=== PATIENT | male | born 1960 | race Caucasian/White ===

== ENCOUNTER → 2018-02-25 09:10 | Outpatient (CLI) | payer OTHER, SELFPAY ==
[2018-02-23 16:03] VITALS: BMI 29.8
[2018-02-25 11:22] LABS: Anion Gap 7 (5-15); BUN 15 mg/dL (7-18); BUN/Creat Ratio 18.4 RATIO (10-20); Calcium,Total 8.7 mg/dL (8.5-10.1); Chloride 106 mmol/L (98-107); Cholesterol 164 mg/dL (200); Creatinine, Serum 0.82 mg/dL (0.70-1.30); EST Glomerular Filtration Rate 103 mL/min (>60); Est Glom Filt Rate - Afr Amer 125 mL/min (>60); Glucose 101 mg/dL (74-106); High Density Lipoprotein 39 mg/dL; Sodium Level 140 mmol/L (136-145); Triglycerides 133 mg/dL; Very Low Density Lipoprotein 27 mg/dL (5-40)
== END ==
PROVIDERS: Family Provider Family Medicine; PCP Family Medicine; Referring Provider Family Medicine; Visit Provider Family Medicine
DX: I10 Essential (primary) hypertension (principal)
CPT/HCPCS: 36415; 80048; 80061

== ENCOUNTER 2018-04-17 08:22 | Day surgery (SDC) | payer OTHER, SELFPAY ==
[2018-02-23 16:03] VITALS: BMI 29.8
[2018-04-17 08:37] VITALS: BP 118/82; PULSE 89; RESP 16; TEMP 36.2; O2SAT 100; BMI 28.0
--- NOTE | 2018-04-17 09:30 | COLBX_PTH ---
PATIENT: KRISTAL COLVIN LOC: EN U#:[id number] AGE/SX: 57/M ROOM: RE04/17/[address]: Dr. Kaelyn Peter MD : 1960 BED: DIS: 04/17/2018 SPEC #: [id number] RECD: 04/17/18 10:56 STATUS: EULALIO REBerenice #: [id number] COLLINS: 04/17/18 09:[address]: Kaelyn Peter DEPT: SURGICAL PATHOLOGY RECD BY: Christiano Moe ENTERED: 04/17/18 14:23 SP TYPE: COLON BX OTHR DR: Dr. Jaspal Melissa, Tissues: A - Ascending colon B - Sigmoid colon biopsy Procedures: Surgery Specimen Level IV HEADER OPERATION: Colonoscopy (MAC) PRE-OP DIAGNOSIS: Screening TISSUE SUBMITTED: A - Biopsy of ascending colon polyp, B - Sigmoid polyps MICROSCOPIC DIAGNOSIS A. Ascending colon polyp, biopsy: Tubular adenoma. B. Sigmoid colon polyps, biopsy: Tubular adenoma. AM:angle 04/18/18 MICROSCOPIC DESCRIPTION Slides are reviewed. GROSS DESCRIPTION A - Received in fixative is one container labeled with the patient's name and designated biopsy of ascending colon polyp. The specimen consists of one irregular fragment of light snyder soft tissue that measures 0.3 x 0.3 x 0.1 cm. The specimen is totally submitted in one cassette. B - Received in fixative is one container labeled with the patient's name and designated sigmoid polyps. The specimen consists of two pieces of snyder-pink polyp measuring 0.5 x 0.3 x 0.3 cm and 1 x 0.5 x 0.3 cm. The specimen is totally submitted in one cassette. / SJ:angle 04/17/18 TC:5 CPT: 51687 x2
--- NOTE | 2018-04-17 09:39 | HP.PCM_ITS ---
History of Present Illness Date of Admission: 04/17/18 The patient is a 57 year old M Zentz for screening for colon cancer. Patient denies having a previous colonoscopy. Denies any history of abdominal pain, nausea, vomiting, reflux. Patient denies any family history of colon cancer. Past Medical/Surgical History - Planned Operation Planned Operative Procedure/s: cscope open access Date of Operative Procedure: 04/17/18 Permit Signed: No S.O.S: No Is This Patient Having a Total Joint: No - Previous Hospitalizations/Surgeries HX Hospitalizations: No HX of Surgeries: tonsillectomy. fx arm Any Problems With Anesthesia: No You/Your Family Experience Fever (Hyperthermia) With Anes: No Cholinesterase deficiency: No - Cardiovascular Hx Chest Pain within Last 2 months: No Hx of Irregular Heartbeat and/or Afib: No Hx Heart Attack: No Hx Congestive Heart Failure: No Hx Rheumatic Fever: No Hx Hypertension: Yes - controlled with med/started on med 6 months ago Hx Internal Defibrillator: No Hx Pacemaker: No Hx Cardiac Catheterization: No Hx Cardiac Surgery/Stents/Etc.: No Hx Stress Test: No HX Edema: No Hx Pain in Legs when Walking/Leg Cramps: Yes - cramps prn - Respiratory Chronic Cough: Yes HX of Shortness of Breath: No Hoarseness: No Hx Chronic Obstructive Pulmonary Disease (COPD): No Hx Asthma: No Hx Emphysema: No Hx Sleep Apnea: No Hx Oxygen Use at Home: No Hx Respiratory Tract Infection/Cold (presently): No Do You Snore Loudly (louder than talking or can be heard): Yes Do You Often Feel Tired/ Fatigued/ Sleepy Dring Daytime?: Yes Has Anyone Observed You Stop Breathing During Sleep?: No Result (for STOP score): Positive Hx Smoking: Yes - 1.5 ppd for 30 yrs Smoking Status: Current every day smoker - Gastrointestinal Hx Gastroesophageal Reflux: No Hx Gastrointestinal Disorders: No Hx Gastrointestinal Bleed: No Hx Ulcer: No Hx Hiatal Hernia: No Difficulty Chewing/Swallowing: No Recent Onset of Swallowing Problems: No Special diet followed at home: No Hx Unplanned Weight Loss of 20#: No HX Unplanned Weight Gain of 20#: No - Neurological Hx Seizures: No HX Syncope/Blackout Spells/Unconsciousness: No Hx CVA/Stroke: No Hx Transient Ischemic Attacks (TIA): No Hx Multiple Sclerosis: Yes - on med/for 30 yrs Hx Parkinson's Disease: No Hx Head/Neck Injury: Yes - concussion as child Hx Headaches: No Hx Back Injury/Pain: Yes - back pain at times Recent Onset of Speech Difficulty: No Restless Legs: No Does patient have nerve stimulator: No Patient instructed to have device shut off: No Rep notified?: No - Blood Disorder Hx Leukemia: No Bleeding Tendencies: No Hx Deep Vein Thrombosis: No Hx High Cholesterol: No Blood Transmitted Disease: No Hx Hepatitis: No Hx Cirrhosis: No Hx Anemia: No Hx Blood Disorders: No - Genitourinary Hx Renal Disease: No - Musculoskeletal Hx Arthritis: No Hx Rheumatoid Arthritis: No Hx Gout: No Recent Onset of an Orthopedic Problem: No - Endocrine Hx Diabetes: No Thyroid Disease: No Hx Steroid Therapy: No - Psycho/Social Hx Substance Use: No Hx Alcohol Use: Yes - daily 4 drinks Hx Anxiety: No Hx Depression: No Mental Illness: No Hx Dementia: No - Miscellaneous Hx Cancer: No Recent Exposure to Contagious Disease: No Active MRSA: No Hx of C-Diff: No Any Loose Teeth: No Allergies No Known Allergies Allergy (Unverified 04/12/18 15:50) - Discharge Is Pt Admitted From a Skilled Nursing, or a Retirement: No Who Could Help: family After D/C, Where Do you Plan to Go: Return Home - Physical Exam Vital Signs Temp Pulse Resp BP Pulse Ox 97.1 F L 89 16 118/82 H 100 04/17/18 08:37 04/17/18 08:37 04/17/18 08:37 04/17/18 08:37 04/17/18 08:37 Oxygen Delivery Method Room Air Weight: 195 lb 12.328 oz Body Mass Index (BMI) 28.0 Assessment/Plan All Active Problems (Last Reviewed 02/23/18 @ 16:16 by Jaspal Melissa DO) Fracture of left upper extremity (Resolved) 57-year-old male screening for colon cancer Surgery Risks - Colonoscopy I discussed with the patient the risks of the procedure: Yes Risks Include but are not Limited To: Risks include but are not limited to: Bleeding, perforation requiring further surgery, inability to complete colonoscopy requiring barium enema. Patient no further questions at this time.
[2018-04-17 10:39] VITALS: BP 118/82; BP 127/84; PULSE 76; RESP 16; TEMP 36.5; O2SAT 95
--- NOTE | 2018-04-17 10:40 | OP.ENDO_ITS ---
04/17/2018 Jaspal Melissa Re : Colonoscopy procedure for Sudhir Cameron Dear Dr. Melissa This procedure was performed on Tuesday, April 17, 2018. My impressions and recommendations are as follows: Impressions : - Hemorrhoids found on perianal exam. - One 5 to 8 mm polyp in the sigmoid colon, removed with a hot snare. Resected and retrieved. - One less than 5 mm polyp in the ascending colon, removed with a cold biopsy forceps. Resected and retrieved. - Internal hemorrhoids. - The examination was otherwise normal. Recommendations : - Discharge patient to home. - Continue present medications. - Await pathology results. - Repeat colonoscopy in 3 - 5 years for surveillance based on pathology results. My findings are described in the full procedure note, which is enclosed. If I can be of further assistance, please feel free to contact me at Doctor phone number(s): , Work: . Sincerely, MD Kaelyn Beltran MD 04/17/2018 10:40:37 AM This report has been signed electronically.
[2018-04-17 10:45] VITALS: BP 118/82; BP 132/86; PULSE 72; RESP 16; O2SAT 97
[2018-04-17 10:50] VITALS: BP 118/82; BP 126/86; PULSE 65; RESP 16; O2SAT 98
[2018-04-17 10:55] VITALS: BP 118/82; BP 134/90; PULSE 66; RESP 16; TEMP 36.2; O2SAT 98
[2018-04-17 11:18] VITALS: BP 118/82
== END 2018-04-17 11:19 | disposition home or self-care (01) ==
LOC: EN 08:24 → AC 08:24
PROVIDERS: Family Provider Family Medicine; PCP Family Medicine; Referring Provider Surgery; Visit Provider Surgery
PROC: 0DJD8ZZ Inspection of Lower Intestinal Tract, Via Natural or Artificial Opening Endoscopic (ICD-10-PCS; CPT 45378; principal; 2018-04-17 09:25)
DX: Z12.11 Encounter for screening for malignant neoplasm of colon (principal); D12.2 Benign neoplasm of ascending colon; D12.5 Benign neoplasm of sigmoid colon; K64.0 First degree hemorrhoids; I10 Essential (primary) hypertension; G35 Multiple sclerosis; F17.200 Nicotine dependence, unspecified, uncomplicated; Z79.899 Other long term (current) drug therapy
CPT/HCPCS: 45380; 45385; 88305; J7120

== ENCOUNTER → 2019-01-31 10:56 | Outpatient (CLI) | payer OTHER, SELFPAY ==
[2019-01-31 10:40] VITALS: BMI 28.0
[2019-01-31 12:37] LABS: Anion Gap 2 (5-15); BUN 12 mg/dL (7-18); BUN/Creat Ratio 13.7 RATIO (10-20); Calcium,Total 9.5 mg/dL (8.5-10.1); Chloride 104 mmol/L (98-107); Creatinine, Serum 0.88 mg/dL (0.70-1.30); EST Glomerular Filtration Rate 94 mL/min (>60); Est Glom Filt Rate - Afr Amer 114 mL/min (>60); Glucose 90 mg/dL (74-106); Potassium 4.4 mmol/L (3.5-5.1); Sodium Level 138 mmol/L (136-145)
== END ==
PROVIDERS: Family Provider Family Medicine; PCP Family Medicine; Visit Provider Family Medicine
DX: I10 Essential (primary) hypertension (principal)
CPT/HCPCS: 36415; 80048

== ENCOUNTER → 2019-04-25 12:20 | Outpatient (CLI) | payer OTHER, SELFPAY ==
[2019-04-25 11:56] VITALS: BMI 28.0
--- NOTE | 2019-04-25 12:22 | RAD_ITS ---
STUDY: X-RAY - LEFT SHOULDER REASON FOR EXAM: Male, 58 years old. left shoulder pain x several months -- NKI TECHNIQUE: 4 view(s) of the shoulder. COMPARISON: None. FINDINGS: Normal glenohumeral articulation. There are mild arthritic changes of the left AC joint. Normal acromion. Normal humeral head and visualized proximal humerus. The soft tissue structures are unremarkable. Normal visualized pulmonary apex. RAD/Shoulder min 2 Views IMPRESSION: Mild arthritic changes of the left AC joint. Electronically Signed: Jaret Hinson MD at 16:32 EDT , Service support ,
== END ==
PROVIDERS: PCP Family Medicine; Referring Provider Family Medicine; Visit Provider Family Medicine
DX: S42.302A Unspecified fracture of shaft of humerus, left arm, initial encounter for closed fracture (principal)
CPT/HCPCS: 73030

== ENCOUNTER → 2020-01-21 15:51 | Outpatient (CLI) | payer OTHER, SELFPAY ==
[2020-01-17 16:22] VITALS: BMI 28.5
[2020-01-21 18:23] LABS: ALB/GLOB Ratio 0.9 RATIO (0.9-2.4); AST(SGOT) 28 U/L (15-37); Alanine Aminotransfer ALT/SGPT 32 U/L (16-61); Albumin, Serum 3.9 g/dL (3.2-5.0); Alkaline Phosphatase 97 U/L (45-117); Anion Gap 6 (5-15); BUN 21 mg/dL (7-18); BUN/Creat Ratio 24.1 RATIO (10-20); Calcium,Total 9.2 mg/dL (8.5-10.1); Chloride 106 mmol/L (98-107); Cholesterol 161 mg/dL (200); Creatinine, Serum 0.87 mg/dL (0.70-1.30); EST Glomerular Filtration Rate 95 mL/min (>60); Est Glom Filt Rate - Afr Amer 115 mL/min (>60); Globulin 4.2 g/dL (2.2-4.2); Glucose 107 mg/dL (74-106); High Density Lipoprotein 35 mg/dL; Potassium 3.8 mmol/L (3.5-5.1); Protein, Total 8.1 g/dL (6.4-8.2); Sodium Level 137 mmol/L (136-145); Triglycerides 200 mg/dL; Very Low Density Lipoprotein 40 mg/dL (5-40)
== END ==
PROVIDERS: PCP Family Medicine; Visit Provider Family Medicine
DX: I10 Essential (primary) hypertension (principal)
CPT/HCPCS: 36415; 80053; 80061

== ENCOUNTER → 2020-08-08 09:56 | Outpatient (CLI) | payer OTHER, SELFPAY ==
[2020-08-08 09:03] VITALS: BMI 28.5
[2020-08-08 12:26] LABS: Absolute Lymphocyte Count 1.79 X10^3/uL (0.83-4.51); Absolute Neutrophil Count 6.9 X10^3/uL (2.0-7.7); Basophil# 0.04 X10^3/uL; Basophil% 0.4 % (0-1); Eosinophil# 0.16 X10^3/uL; Eosinophils% 1.6 % (0-5); Hematocrit 45.8 % (40-54); Hemoglobin 15.8 g/dL (13.0-16.5); Lymphocyte # 1.79 X10^3/ul (0.83-4.51); Mean Corp Hgb Conc 34.5 g/dL (32-36); Mean Corpuscular Hgb 31.5 pg (27.0-32.0); Mean Corpuscular Volume 91.2 fL (80-94); Mean Platelet Vol. 12.1 fl (6.2-12.0); Monocyte# 1.05 X10^3/uL; Monocyte% 10.6 % (0-10); NRBC Flagged by Analyzer 0 % (0-5); Neutrophil # 6.86 X10^3/uL (2.7-7.7); Platelet Count 199 K/mm3 (150-450); RBC Distribution Width CV 13.5 % (11.6-14.6); RBC Distribution Width SD 45.7 fl (35.1-43.9); Red Blood Count 5.02 M/mm3 (4.6-6.2); White Blood Count 9.9 K/mm3 (4.4-11.0)
[2020-08-08 12:59] LABS: Vitamin B12 658 pg/mL (211-911)
[2020-08-08 13:01] LABS: Anion Gap 5 (5-15); BUN 21 mg/dL (7-18); BUN/Creat Ratio 23.3 RATIO (10-20); Calcium,Total 9.4 mg/dL (8.5-10.1); Chloride 104 mmol/L (98-107); EST Glomerular Filtration Rate 91 mL/min (>60); Est Glom Filt Rate - Afr Amer 110 mL/min (>60); Glucose 94 mg/dL (74-106); Potassium 4.1 mmol/L (3.5-5.1); Sodium Level 137 mmol/L (136-145)
== END ==
PROVIDERS: PCP Family Medicine; Referring Provider Physician Assistant; Visit Provider Physician Assistant
DX: I10 Essential (primary) hypertension (principal); R42 Dizziness and giddiness
CPT/HCPCS: 36415; 80048; 82607; 85025

== ENCOUNTER → 2020-09-24 16:08 | Outpatient (CLI) | payer OTHER, SELFPAY ==
[2020-09-24 15:55] VITALS: BMI 27.7
[2020-09-24 16:52] LABS: Absolute Lymphocyte Count 2.64 X10^3/uL (0.83-4.51); Absolute Neutrophil Count 5.3 X10^3/uL (2.0-7.7); Basophil# 0.04 X10^3/uL; Basophil% 0.4 % (0-1); Eosinophil# 0.12 X10^3/uL; Eosinophils% 1.3 % (0-5); Hematocrit 43.6 % (40-54); Hemoglobin 15.1 g/dL (13.0-16.5); Lymphocyte # 2.64 X10^3/ul (0.83-4.51); Lymphocyte % 29.5 % (19-41); Mean Corp Hgb Conc 34.6 g/dL (32-36); Mean Corpuscular Hgb 31.7 pg (27.0-32.0); Mean Corpuscular Volume 91.4 fL (80-94); Mean Platelet Vol. 12.5 fl (6.2-12.0); Monocyte# 0.86 X10^3/uL; Monocyte% 9.6 % (0-10); NRBC Flagged by Analyzer 0 % (0-5); Neutrophil # 5.27 X10^3/uL (2.7-7.7); Neutrophil % 58.9 % (47-70); Platelet Count 187 K/mm3 (150-450); RBC Distribution Width CV 13.8 % (11.6-14.6); RBC Distribution Width SD 46.6 fl (35.1-43.9); Red Blood Count 4.77 M/mm3 (4.6-6.2)
[2020-09-24 17:40] LABS: ALB/GLOB Ratio 1.1 RATIO (0.9-2.4); AST(SGOT) 19 U/L (15-37); Alanine Aminotransfer ALT/SGPT 25 U/L (16-61); Albumin, Serum 4.1 g/dL (3.2-5.0); Alkaline Phosphatase 86 U/L (45-117); Anion Gap 7 (5-15); BUN 18 mg/dL (7-18); BUN/Creat Ratio 23.1 RATIO (10-20); Calcium,Total 9.3 mg/dL (8.5-10.1); Chloride 104 mmol/L (98-107); Creatinine, Serum 0.78 mg/dL (0.70-1.30); EST Glomerular Filtration Rate 108 mL/min (>60); Est Glom Filt Rate - Afr Amer 130 mL/min (>60); Globulin 3.8 g/dL (2.2-4.2); Glucose 95 mg/dL (74-106); Potassium 3.8 mmol/L (3.5-5.1); Protein, Total 7.9 g/dL (6.4-8.2); Sodium Level 136 mmol/L (136-145); Thyroid Stim Hormone (TSH) 0.94 uIU/mL (0.358-3.74)
== END ==
PROVIDERS: PCP Family Medicine; Referring Provider Physician Assistant; Visit Provider Physician Assistant
DX: R19.7 Diarrhea, unspecified (principal)
CPT/HCPCS: 36415; 80053; 84443; 85025

== ENCOUNTER 2021-08-31 09:21 | Day surgery (SDC) | payer OTHER, SELFPAY ==
[2021-08-31 10:19] VITALS: BP 119/72; PULSE 68; RESP 18; TEMP 37.3; O2SAT 100; BMI 25.1
[2021-08-31] MEDS: Lactated Ringers 1,000 ML 15 ML IV (10:20)
--- NOTE | 2021-08-31 10:27 | H&P.OPEN ---
HPI - General HPI Narrative KRISTAL COLVIN, is a 61 M who presents for colonoscopy due to history of colon polyps. Patient's last colonoscopy was April 2018, patient did have tubular adenomas at that time.. Patient states he has bowel movements about every other day denies any blood. Patient denies any family history of colon cancer. Denies any chronic abdominal pain/nausea/vomiting/reflux. PFSH Medical History (Updated 08/31/21 @ 10:[address] Kaelyn Peter MD) Alcohol use Arthritis Back pain Depression Fracture of left upper extremity Hx of colonic polyp Hypertension Multiple sclerosis Smoker Wears glasses Home Medications cholecalciferol (vitamin D3) 50 mcg (2,000 unit) capsule 2,000 unit PO DAILY 02/23/18 [History Last Taken Unknown] interferon beta-1a 30 mcg/0.5 mL intramuscular pen kit (Avonex) 0.5 ml IM QWEEK 02/23/18 [History Last Taken Unknown] potassium gluconate 595 mg (99 mg) tablet 99 mg PO DAILY 04/12/18 [History Last Taken Unknown] lisinopril 20 mg-hydrochlorothiazide 12.5 mg tablet 1 tab PO DAILY #90 tabs 01/28/21 [Rx Last Taken Unknown] naproxen 500 mg tablet 500 mg PO BID #30 tabs 07/06/21 [Rx Last Taken Unknown] dalfampridine 10 mg tablet,extended release,12 hr 1 tab PO DAILY 08/27/21 [History Last Taken 08/31/21] Allergy/AdvReac Type Severity Reaction Status Date / Time No Known Allergies Allergy Verified 08/27/21 15:08 Family History Mother Arthritis Breast cancer CVA (cerebral vascular accident) Surgical History (Updated 07/07/21 @ 08:51 by Yanci Colvin) History of tonsillectomy and adenoidectomy Hx of colonoscopy Social History Smoking Status: Current every day smoker tobacco type: cigarettes alcohol intake: current alcohol intake frequency: 0-2 drinks per day Alcohol type: beer substance use type: does not use what type of physical activity do you participate in: none Past Medical/Surgical History Planned Operation Planned Operative Procedure/s: COLONOSCOPY S.O.S: No Previous Hospitalizations/Surgeries HX Hospitalizations: No HX of Surgeries: tonsillectomy fx arm Any Problems With Anesthesia: No You/Your Family Experience Fever (Hyperthermia) With Anes: No Cholinesterase deficiency: No Cardiovascular Hx Chest Pain within Last 2 months: No Hx of Irregular Heartbeat and/or Afib: No Hx Heart Attack: No Hx Congestive Heart Failure: No Hx Rheumatic Fever: No Hx Hypertension: Yes (controlled with med/started on med 6 months ago) Hx Internal Defibrillator: No Hx Pacemaker: No Hx Cardiac Catheterization: No Hx Cardiac Surgery/Stents/Etc.: No Hx Stress Test: No Hx Pain in Legs when Walking/Leg Cramps: Yes (cramps prn) Respiratory Chronic Cough: Yes HX of Shortness of Breath: No Hoarseness: No Hx Chronic Obstructive Pulmonary Disease (COPD): No Hx Asthma: No Hx Emphysema: No Hx Sleep Apnea: No Hx Respiratory Tract Infection/Cold (presently): No Do You Snore Loudly (louder than talking or can be heard): Yes Do You Often Feel Tired/ Fatigued/ Sleepy Dring Daytime?: No Has Anyone Observed You Stop Breathing During Sleep?: No Result (for STOP score): Positive Hx Smoking: Yes (1.5 ppd for 30 yrs) Smoking Status: Current every day smoker Gastrointestinal Hx Gastroesophageal Reflux: No Hx Gastrointestinal Disorders: No Hx Gastrointestinal Bleed: No Hx Ulcer: No Hx Hiatal Hernia: No Difficulty Chewing/Swallowing: No Special diet followed at home: No Hx Unplanned Weight Loss of 20#: No HX Unplanned Weight Gain of 20#: No Neurological Hx Seizures: No HX Syncope/Blackout Spells/Unconsciousness: No Hx Transient Ischemic Attacks (TIA): No Hx Multiple Sclerosis: Yes (on med/for 30 yrs) Hx Parkinson's Disease: No Hx Head/Neck Injury: Yes (concussion as child) Hx Headaches: No Hx Back Injury/Pain: Yes (back pain at times) Recent Onset of Speech Difficulty: No Restless Legs: No Does patient have nerve stimulator: No Blood Disorder Hx Leukemia: No Bleeding Tendencies: No Hx Deep Vein Thrombosis: No Hx High Cholesterol: No Blood Transmitted Disease: No Hx Hepatitis: No Hx Cirrhosis: No Hx Anemia: No Hx Blood Disorders: No Genitourinary Hx Renal Disease: No Musculoskeletal Hx Arthritis: No Hx Rheumatoid Arthritis: No Hx Gout: No Recent Onset of an Orthopedic Problem: No Endocrine Hx Diabetes: No Thyroid Disease: No Hx Steroid Therapy: No Psycho/Social Hx Substance Use: No Hx Alcohol Use: Yes (daily 4 drinks) Hx Anxiety: No Hx Depression: No Mental Illness: No Hx Dementia: No Miscellaneous Hx Cancer: No Recent Exposure to Contagious Disease: No Hx of C-Diff: No Any Loose Teeth: No Allergies No Known Allergies Allergy (Verified 08/27/21 15:08) Discharge Is Pt Admitted From a Group Home, or a Fpc: No After D/C, Where Do you Plan to Go: Return Home From the PAT History Number of Risk Factors: 3 Physical Exam Const alert, oriented x3 and no apparent distress HEENT normocephalic and head/scalp atraumatic Resp normal respiratory effort Cardio regular rate GI soft to palpation and non-tender; Negative for non-distended Palpation: Negative for guarding Extremity no clubbing, cyanosis or edema Neuro CN's II-XII intact bilaterally Psych mental status grossly normal Assessment & Plan Assessment/Plan (1) Hx of colonic polyp: Surgery Risks - Colonoscopy Risks Include but are not Limited To: Risks include but are not limited to: Bleeding, perforation requiring further surgery, inability to complete colonoscopy requiring barium enema.
[2021-08-31 11:04] VITALS: BP 106/77; BP 119/72; PULSE 73; RESP 16; TEMP 36.3; O2SAT 99
--- NOTE | 2021-08-31 11:04 | OP.CCLET_ITS ---
08/31/2021 Jaspal Melissa Re : Colonoscopy procedure for Sudhir Cameron Dear Dr. Melissa This procedure was performed on Tuesday, August 31, 2021. My impressions and recommendations are as follows: Impressions : - Hemorrhoids found on perianal exam. - External and internal hemorrhoids. - The entire examined colon is normal. - No specimens collected. Recommendations : - Discharge patient to home. - Resume previous diet. - Continue present medications. - Repeat colonoscopy in 10 years for screening purposes. My findings are described in the full procedure note, which is enclosed. If I can be of further assistance, please feel free to contact me at Doctor phone number(s): , Work: . Sincerely, MD Kaelyn Beltran MD 08/31/2021 11:04:19 AM This report has been signed electronically.
--- NOTE | 2021-08-31 11:04 | OP.COLON_ITS ---
Patient Name: Sudhir Cameron Procedure Date: 08/31/2021 10:35 AM Date of : 1960 Age: 61 Procedure: Colonoscopy Indications: High risk colon cancer surveillance: Personal history of colonic polyps Providers: Kaelyn Peter MD Medicines: Monitored Anesthesia Care Patient Profile: This is a 61 year old male. Last Colonoscopy: 3 years ago. Complications: No immediate complications. Procedure: Pre-Anesthesia Assessment: - Prior to the procedure, a History and Physical was performed, and patient medications and allergies were reviewed. The patient's tolerance of previous anesthesia was also reviewed. The risks and benefits of the procedure and the sedation options and risks were discussed with the patient. All questions were answered, and informed consent was obtained. Prior Anticoagulants: The patient has taken no previous anticoagulant or antiplatelet agents. ASA Grade Assessment: Per anesthesia. After reviewing the risks and benefits, the patient was deemed in satisfactory condition to undergo the procedure. After I obtained informed consent, the scope was passed under direct vision. Throughout the procedure, the patient's blood pressure, pulse, and oxygen saturations were monitored continuously. The Colonoscope was introduced through the anus and advanced to the cecum, identified by the appendiceal orifice, ileocecal valve and palpation. The colonoscopy was performed without difficulty. The patient tolerated the procedure well. The quality of the bowel preparation was good. Scope In: 10:42:05 AM Scope Withdrawal Time 0 hours 8 minutes 20 seconds Scope Out: 10:58:48 AM Total Procedure Duration Time 0 hours 16 minutes 43 seconds Findings: Hemorrhoids were found on perianal exam. External and internal hemorrhoids were found. The hemorrhoids were small and Grade I (internal hemorrhoids that do not prolapse). The entire examined colon appeared normal. Impression: - Hemorrhoids found on perianal exam. - External and internal hemorrhoids. - The entire examined colon is normal. - No specimens collected. Recommendation: - Discharge patient to home. - Resume previous diet. - Continue present medications. - Repeat colonoscopy in 10 years for screening purposes. Procedure Code(s): --- Professional --- G0105, PT, Colorectal cancer screening; colonoscopy on individual at high risk Diagnosis Code(s): --- Professional --- Z86.010, Personal history of colonic polyps K64.0, First degree hemorrhoids CPT copyright 2017 [employer]. All rights reserved. The codes documented in this report are preliminary and upon assistant professor of radiology review may be revised to meet current compliance requirements. MD Kaelyn Beltran MD 08/31/2021 11:04:19 AM This report has been signed electronically. Number of Addenda: 0 Note Initiated On: 08/31/2021 10:35 AM
[2021-08-31 11:10] VITALS: BP 106/85; BP 119/72; PULSE 70; RESP 16; O2SAT 100
[2021-08-31 11:15] VITALS: BP 114/78; BP 119/72; PULSE 75; RESP 16; O2SAT 100
[2021-08-31 11:20] VITALS: BP 119/72; BP 129/83; PULSE 58; RESP 14; TEMP 36.4; O2SAT 100
[2021-08-31 11:43] VITALS: BP 119/72
== END 2021-08-31 11:46 | disposition home or self-care (01) ==
LOC: EN 09:29 → AC 10:18
PROVIDERS: PCP Family Medicine; Referring Provider Family Medicine; Visit Provider Surgery
PROC: 0DJD8ZZ Inspection of Lower Intestinal Tract, Via Natural or Artificial Opening Endoscopic (ICD-10-PCS; CPT 45378; principal; 2021-08-31 10:40)
DX: K64.4 Residual hemorrhoidal skin tags (principal); G35 Multiple sclerosis; K64.0 First degree hemorrhoids; I10 Essential (primary) hypertension; F17.210 Nicotine dependence, cigarettes, uncomplicated; Z79.899 Other long term (current) drug therapy; Z86.010 Personal history of colon polyps
CPT/HCPCS: 45378; J7120; J2405

== ENCOUNTER → 2022-01-27 | Outpatient (CLI) | payer OTHER, SELFPAY ==
[2022-01-27 17:00] LABS: AST(SGOT) 22 U/L (15-37); Alanine Aminotransfer ALT/SGPT 26 U/L (16-61); Albumin, Serum 3.8 g/dL (3.2-5.0); Alkaline Phosphatase 91 U/L (45-117); Anion Gap 3 (5-15); BUN 33 mg/dL (7-18); BUN/Creat Ratio 32.4 RATIO (10-20); Calcium,Total 8.8 mg/dL (8.5-10.1); Chloride 107 mmol/L (98-107); Creatinine, Serum 1.02 mg/dL (0.70-1.30); EST Glomerular Filtration Rate 79 mL/min (>60); Est Glom Filt Rate - Afr Amer 95 mL/min (>60); Globulin 3.7 g/dL (2.2-4.2); Glucose 118 mg/dL (74-106); Potassium 4.3 mmol/L (3.5-5.1); Protein, Total 7.5 g/dL (6.4-8.2); Sodium Level 140 mmol/L (136-145)
== END | disposition home or self-care (01) ==
LOC: BIMLAB 15:53
PROVIDERS: PCP Family Medicine; Referring Provider Family Medicine; Visit Provider Family Medicine
DX: I10 Essential (primary) hypertension (principal)
CPT/HCPCS: 36415; 80053

== ENCOUNTER → 2022-11-27 | Outpatient (CLI) | payer OTHER, SELFPAY ==
[2022-11-27 09:27] LABS: ALB/GLOB Ratio 0.8 RATIO (0.9-2.4); AST(SGOT) 21 U/L (15-37); Alanine Aminotransfer ALT/SGPT 31 U/L (16-61); Albumin, Serum 3.4 g/dL (3.2-5.0); Alkaline Phosphatase 103 U/L (45-117); Anion Gap 3 (5-15); BUN 19 mg/dL (7-18); BUN/Creat Ratio 21.8 RATIO (10-20); Calcium,Total 9.1 mg/dL (8.5-10.1); Chloride 106 mmol/L (98-107); Cholesterol 145 mg/dL (200); Creatinine, Serum 0.87 mg/dL (0.70-1.30); EST Glomerular Filtration Rate 94 mL/min (>60); Est Glom Filt Rate - Afr Amer 114 mL/min (>60); Globulin 4.4 g/dL (2.2-4.2); Glucose 113 mg/dL (74-106); High Density Lipoprotein 37 mg/dL; Potassium 4.4 mmol/L (3.5-5.1); Protein, Total 7.8 g/dL (6.4-8.2); Sodium Level 140 mmol/L (136-145); Triglycerides 122 mg/dL; Very Low Density Lipoprotein 24 mg/dL (5-40)
== END | disposition home or self-care (01) ==
PROVIDERS: PCP Family Medicine; Referring Provider Family Medicine; Visit Provider Family Medicine
DX: I10 Essential (primary) hypertension (principal)
CPT/HCPCS: 36415; 80053; 80061

== ENCOUNTER → 2023-03-25 | Outpatient (CLI) | payer OTHER, SELFPAY ==
--- OUTSIDE RECORDS SUMMARY | 2023-03-25 17:39 | XMS RPT_ITS | CCD ---
Author Name Unknown Address [address] [place] [address] Organization [facility] Care Team Providers Care Blanchard Grinder Operator Name Role Phone OMI AGUILAR Attending Unavailable Unavailable Primary Care Provider Unavailabl e Problems Problem Classification Problem Date Documented Da te Episodic/Chronic Other connective tissue disease (1 source) Pain in right foot; Translations: [Pain in right foot] Onset: 04-13-2022 Episodic Other connective tissue disease (1 source) Pain in right foot; Translations: [Pain in right foot] 04-13-2022 Episodic Results Test Name Value Interpretation Reference Range Facil ity Encounters Encounter Date Encounter Type Care Provider Facility Start: 04-13-2022 End: 04-13-2022 ambulatory OMI AGUILAR Facility:[facility] Start: 04-13-2022 End: 04-13-2022 Subsequent hospital visit by physician Chacha [facility] Taj Mob Work Phone: Radiology Procedures Date Procedure Procedure Detail Performing Clinician Start: 04-13-2022 Radex foot complete minimum 3 views Omi Aguilar Work Phone: Start: 04-17-2018 Colonoscopy [facility]r [employer] Work Phone: Plan of Treatment Date Care Activity Detail Author Start: 10-15-2022 Covid-19 Vaccine ( season) Covid-19 Vaccine ( season) [facility] Start: 10-15-2022 Influenza vaccination Influenza Vacc ine (#1) [facility] Start: 02-14-2022 Depression Assessment Depression Ass essment [facility] Start: 2019 RSV Vaccine (1 - 1-d ose 60+ series) RSV Vaccine (1 - 1-dose 60+ series) [facility] Start: 04-18-2019 Colonoscopy Colonoscopy [facility] Start: 04-18-2019 Colorectal Cancer Screening Colorectal Cancer Screening [facility] Start: 08-26-2014 Prostate Cancer Scre ening Discussion Prostate Cancer Screening Discussion [facility] Start: 08-26-2004 Cologuard (FIT-DNA) Cologuard (FIT-D NA) [facility] Start: 08-26-[address] Colonography [facility] Start: 08-26-2004 Diabetes Screening Diabetes Screenin g [facility] Start: 08-26-2004 Fecal Occult Blood Fecal Occult Bloo d [facility] Start: 08-26-2004 Sigmoidoscopy Sigmoidoscopy [facility] Start: 08-26-1994 Lipid 1996 panel - S tracey or Plasma Lipid Screening [facility] Start: 08-26-1978 Urine microalbumin profile DTa P,Tdap,Td Vaccine (1 - Tdap) [facility] Start: 08-26-1977 Hepatitis C Screening Hepatitis C Sc reening [facility] Start: 08-26-1977 HIV Screening HIV Screening [facility] Immunizations Immunization Date Immunization Notes Care Provider Fa cility 12-21-2021 influenza virus vacc ine, unspecified formulation Xr [employer] Work Phone: [facility] Payers Date Payer Category Payer Unknown [id number] 2022 Unknown [employer] PPO [id number] 2022-Present [phone] [place] [id number] PPO [id number] Social History Date Type Detail Facility [facility] consumption unknown [facility] Start: 04-13-2022 History of Social function [facility] Start: 04-13-2022 Area Deprivation Index [facility] National Score (1-10 0), lower number is lower risk 49 [facility] Start: 1960 Sex Assigned At Not on file C [facility] Progress note 04-13-2022 Note Date & Type Note Facility 04-13-2022 Note HNO ID: [id number] Author: Omi Aguilar Service: ? Author Type: Physician Type: Progress Notes Filed: 04/13/2022 11:20 AM Note Text: Initial Podiatric Office Visit: Chief Complaint: This 61 year old male who presents with chief complaint:right heel pain HPI Patient presents to clinic for evaluation of right foot For the past few weeks, patient has been experiencing right heel pain. The pain is most severe when he is at work as he is standing on hard cement floors He states he has tried new shoes, alleve prn, over the counter inserts. He states he is not a fan of the inserts. He states the pain is not horrible today. PAIN EVALUATION 04/13/2022 1057 Pain Level: 8 Pain Location: Foot-Right Description: Throbbing;Stabbing Duration Amount of Time: 3 Duration Units: Weeks Frequency: Intermittent Intervention/Comfort measure: Reposition;Relaxation No results found for: HBA1C PCP: No primary care provider on file. PAST MEDICAL HISTORY Diagnosis Date High blood pressure Multiple sclerosis (HCC) Current Outpatient Medications Medication Sig AVONEX 30 mcg/0.5 mL injection pen kit Potassium Gluconate 2.5 mEq tab Take 99 mg by mouth. Cholecalciferol, Vitamin D3, 50 mcg (2,000 unit) cap Take 2,000 Units by mouth once daily. lisinopril-hydroCHLOROthiazide (PRINZIDE,ZESTORETIC) 20-12.5 mg per tablet lisinopril 20 mg-hydrochlorothiazide 12.5 mg tablet TAKE 1 TABLET BY MOUTH EVERY DAY dalfampridine ER (AMPYRA) 10 mg tablet No current facility-administered medications for this visit. ALLERGIES No Known Allergies PAST SURGICAL HISTORY Procedure Laterality Date TONSILLECTOMY AND ADENOIDECTOMY FAMILY HISTORY Problem Relation Age of Onset Cancer Mother Gout Brother REVIEW OF SYSTEMS GENERAL: Negative for Malaise, significant weight loss, fever RESPIRATORY: Negative for cough, wheezing and shortness of breath CARDIOVASCULAR: Negative for chest pain, leg swelling and palpitations GI: Negative for abdominal discomfort, blood in stools or black stools and change in bowel habits : Negative for dysuria, frequency and incontinence MUSCULOSKELETAL: Negative for joint pain or swelling, back pain, and muscle pain. SKIN: Negative for lesions, rash, and itching. HEMATOLOGY/LYMPHOLOGY Negative for prolonged bleeding, bruising easily, and swollen nodes. ENDOCRINE: Negative for cold or heat intolerance, polyuria, polydipsia and goiter. NEURO: negative Physical Exam: Constitutional: Pt is a well developed 61 year old male who is alert, oriented and cooperative Eyes: Following during examination. No redness or drainage. Respiratory: RR normal and nonlabored. Even breathing. No evidence of distress or shortness of breath. Psychology: Patient is engaged during conversation. Normal affect and mood. Does not appear depressed or anxious during encounter. Vascular: Dorsalis pedis and posterior tibial pulses palpable as b/l Capillary Fill time < 5 seconds to digits 1-5 b/l Skin temperature warm to warm proximal to distal b/l Hair growth present to digits Neurological: intact light touch/epicritic sensation - tinel b/l intact protective sensation no significant neurological deficits Dermatological: Nails 1-5 b/l appear normal. Webspaces clean and dry 1-4 b/l. Skin appears well hydrated and supple. good color, texture, turgor. No open lesions present. No callosities present. Musculoskeletal/Orthopaedic: Patient has pain to palpation of right medial calcaneal tubercle Foot type is slight pronated structurally AJ ROM is full with knee extended and flexed 1st MPJ is full when loaded and no pain or crepitus are noted with ROM. MTJ, STJ are full and free of pain and crepitus. +5/5 muscle strength dorsiflexion, plantarflexion, inversion, eversion b/l Radiographs: 3 views right foot ordered April 13, 2022: I have personally reviewed and interpreted these XR myself: plantar heel spur ASSESSMENT: (M72.2) Plantar fasciitis (primary encounter diagnosis) PLAN: 1. Initial Office Visit - A thorough review of the patient's PMH and Podiatric physical exam was completed. 2. Patient advised to perform stretching excercises, icing, and to make appropriate shoe gear changes to include wearing athletic-type shoes with supportive insoles. No barefoot walking. Patient also given written instructions on how to correctly perform the stretching of the achilles tendon/calf stretches, and the heel spur/plantar fasciitis regimen. 3. Patient advised to seek wide, deep toe box, accomodative, comfortable, lace-up, athletic/walking type footwear that includes motion control characteristics for support and cushion that need to be worn at all times when weight-bearing. Shoes should be tested for torsional stability as well as proper bending at the toebox rather than at the midfoot. Good quality shoes such as, but not limited to, New Balance or Asics are e (more content not included)... [facility] Progress note 04-13-2022 Note Date & Type Note Facility 04-13-2022 Note HNO ID: [id number] Author: Zeenat Gardner LPN Service: ? Author Type: LICENSED NURSE Type: Progress Notes Filed: 04/13/2022 11:15 AM Note Text: AMB ROOMING INTAKE FLOWSHEET DATA Risk Screening Do you have concerns about personal safety or safety in the home?: No Pain Pain Level: 8 Pain Location: Foot-Right Description: Throbbing, Stabbing Duration Amount of Time: 3 Duration Units: Weeks Frequency: Intermittent Intervention/Comfort measure: Reposition, Relaxation Patient presents with: Right Foot - New, Pain Zeenat Gardner LPN [facility] Progress note 04-13-2022 Note Date & Type Note Facility 04-13-2022 Note HNO ID: [id number] Author: RT Ning(R) Service: Nuclear Medicine Author Type: Technologist Type: Progress Notes Filed: 04/13/2022 10:51 AM Note Text: Radiology Service Progress Note PATIENT NAME: Sudhir Cameron DATE OF SERVICE: April 13, 2022 TIME: 10:38 AM PATIENT IDENTITY VERIFICATION COMPLETED USING TWO (2) IDENTIFIERS: Name and Date of confirmed by patient verbally. FALL SCREENING: Has the patient had 2 falls in the last year or 1 fall with injury or currently using an Ambulatory Assistive Device (Walker, Cane, Wheelchair, Crutches, etc.)? No PATIENT GENDER DATA: Male PATIENT RELEVANT IMPLANT DATA REVIEWED: Not Applicable RADIOLOGY DEPARTMENT: General X-ray: Exam(s) Completed: Lower Extremity X-Ray(s): Foot, Right and Wt. Bearing PERIPHERAL IV DATA: Not applicable SIGNED BY: RT Ning(R) April 13, 2022 10:38 AM [facility] History of Present illness Narrative 04-13-2022 Mireya Tsai RT(R) - 04/13/2022 10:00 AM EST Note Date & Type Note Facility 04-13-2022 History of Presen t illness Narrative Radiology Service Progress Note PATIENT NAME: Sudhir Cameron DATE OF SERVICE: April 13, 2022 TIME: 10:38 AM PATIENT IDENTITY VERIFICATION COMPLETED USING TWO (2) IDENTIFIERS: Name and Date of confirmed by patient verbally. FALL SCREENING: Has the patient had 2 falls in the last year or 1 fall with injury or currently using an Ambulatory Assistive Device (Walker, Cane, Wheelchair, Crutches, etc.)? No PATIENT GENDER DATA: Male PATIENT RELEVANT IMPLANT DATA REVIEWED: Not Applicable RADIOLOGY DEPARTMENT: General X-ray: Exam(s) Completed: Lower Extremity X-Ray(s): Foot, Right and Wt. Bearing PERIPHERAL IV DATA: Not applicable SIGNED BY: RT Ning(R) April 13, 2022 10:38 AM documented in this encounter [facility] Clinical Note 07-30-2020 Note Date & Type Note Facility 07-30-2020 Note . MICRO - Microbiology PROCEDURE: Urine Culture [*1] SOURCE: Urine, Clean Catch BODY SITE: COLLECTED DATE/TIME: 07/27/2020 16:33 EDT RECEIVED DATE/TIME: 07/28/2020 15:20 EDT START DATE/TIME: 07/28/2020 15:21 EDT FREE TEXT SOURCE: FINAL REPORTS Final Report [] Verified Date/Time/Personnel: 07/30/2020 07:46 EDT No growth at 48 hours. PRELIMINARY REPORTS Preliminary Report [] Verified Date/Time/Personnel: 07/29/2020 11:02 EDT No growth to date Performing Locations *1: This test was performed at: [facility], [address] [place] [address], [facility] , [facility] ([place]) Evaluation note Note Date & Type Note Facility documented in this encounter [facility] Reason for referral (narrative) Diagnostic Procedure Only (Routine) - Closed Note Date & Type Note Facility Referral ID Status Reason Start Date Expiration Date V isits Requested Visits Authorized [id number] Closed Auto-Generate d Referral 04/08/2022 05/08/2023 1 1 [facility] Summary Purpose Family History No Family History Records FoundNo Family History Records Found Advance Directives No Advanced Directives Records FoundNo Advanced Directives Records Found Additional Source Comments (unrecognized sect ion and content) No Status Records FoundNo Status Records Found INFORMATION SOURCE (unrecogn ized section and content) DATE CREATED AUTHOR AUTHOR'S ORGANIZ ATION 04/15/2022 [facility] Source Comments (unrecognize d section and content) In the event this informatio n is protected by the Federal Confidentiality of Alcohol and Drug Abuse Patient Records regulations: The Federal rules restrict any use of the information to criminally investigate or prosecute any alcohol or drug abuse patient.[facility] Reason for Visit (unrecogniz ed section and content) Referral ID Status Reason Start Date Expiration Date Visits Re quested Visits Authorized [id number] Closed 04/13/2022 02/13/2023 1 1 FOR RECORDS PERTAINING TO PATIENTS WHO ARE OR HAVE BEEN ENROLLED IN A CHEMICAL DEPENDENCY/SUBSTANCEABUSE PROGRAM, SOME INFORMATION MAY BE OMITTED. This clinical summary was aggregated from multiple sources. Caution should be exercised in using it in the provision of clinical care. This summary normalizes information from multiple sources, and as a consequence, information in this document may materially change the coding, format and clinical context of patient data. In addition, data may be omitted in some cases. CLINICAL DECISIONS SHOULD BE BASED ON THE PRIMARY CLINICAL RECORDS. [facility]. provides no warranty or guarantee of the accuracy or completeness of information in this document.
== END | disposition home or self-care (01) ==
LOC: LABSPEC 16:30
PROVIDERS: PCP Family Medicine; Visit Provider Nurse Practitioner
DX: L02.212 Cutaneous abscess of back [any part, except buttock and flank] (principal)
CPT/HCPCS: 87070; 87205

== ENCOUNTER → 2024-03-13 | Outpatient (CLI) | payer OTHER, SELFPAY ==
[2024-03-13 17:29] LABS: AST(SGOT) 22 U/L (15-37); Alanine Aminotransfer ALT/SGPT 31 U/L (16-61); Albumin, Serum 3.9 g/dL (3.2-5.0); Alkaline Phosphatase 79 U/L (45-117); Anion Gap 4 (5-15); BUN 33 mg/dL (7-18); BUN/Creat Ratio 41.2 RATIO (10-20); Calcium,Total 9.1 mg/dL (8.5-10.1); Chloride 105 mmol/L (98-107); EST Glomerular Filtration Rate 103 mL/min (>60); Est Glom Filt Rate - Afr Amer 125 mL/min (>60); Glucose 108 mg/dL (74-106); PSA,Total- Diagnostic 0.21 ng/mL (0.0-4.0); Potassium 3.9 mmol/L (3.5-5.1); Protein, Total 7.9 g/dL (6.4-8.2); Sodium Level 138 mmol/L (136-145)
== END | disposition home or self-care (01) ==
LOC: BIMLAB 15:51
PROVIDERS: PCP Family Medicine; Referring Provider Family Medicine; Visit Provider Family Medicine
DX: Z00.00 Encounter for general adult medical examination without abnormal findings (principal); I10 Essential (primary) hypertension
CPT/HCPCS: 36415; 80053; 84153

== ENCOUNTER → 2025-02-01 | Outpatient (CLI) | payer OTHER, SELFPAY ==
[2025-02-01 17:30] LABS: Cholesterol 171 mg/dL (<=200); Low Density Lipoprotein Calc. 102 mg/dL; PSA,Total - Annual Screen 0.32 ng/mL (0.02-4.00); Triglycerides 177 mg/dL; Very Low Density Lipoprotein 35 mg/dL (5-40); cholesterol:hdl ratio screen 4.55
[2025-02-01 17:34] LABS: AST(SGOT) 25 U/L (<=37); Alanine Aminotransfer ALT/SGPT 18 U/L (<=46); Albumin, Serum 4.2 g/dL (3.4-4.8); Alkaline Phosphatase 74 U/L (40-129); Anion Gap 10 (5-15); BUN 36 mg/dL (4-19); BUN/Creat Ratio 37.0 RATIO (10-20); Calcium,Total 9.4 mg/dL (7.6-11.0); Carbon Dioxide 25.9 mmol/L (21.0-32.0); Chloride 104 mmol/L (98-108); Globulin 3.4 g/dL (2.2-4.2); Glucose 93 mg/dL (70-99); Potassium 4.3 mmol/L (3.3-5.1)
== END | disposition home or self-care (01) ==
LOC: LAB 15:06
PROVIDERS: PCP Family Medicine; Referring Provider Family Medicine; Visit Provider Family Medicine
DX: I10 Essential (primary) hypertension (principal); N40.1 Benign prostatic hyperplasia with lower urinary tract symptoms; R35.1 Nocturia
CPT/HCPCS: 36415; 80053; 80061; 84153; G0103